=== PATIENT | female | born 1985 | race Caucasian/White ===

== ENCOUNTER → 2019-08-05 | Outpatient (CLI) | payer OTHER ==
--- NOTE | 2019-08-05 08:37 | WOMENS IMAGING REPORT ---
EXAM DESCRIPTION: U/S ABDOMEN LIMITED COMPLETED DATE/TIME: 08/05/2019 8:19 am REASON FOR STUDY: K42.9 UMBILICAL HERNIA WITHOUT OBSTRUCTION OR GANGRENE Z01.89 ENCOUNTER FOR OTHER SPECIFIED SPECIAL EXAMINATIONS COMPARISON: None. TECHNIQUE: Dynamic and static grayscale images acquired of the abdomen and the paraumbilical anterio r abdominal wall recorded on PACS. Additional selected color Doppler and spectral images recorded. LIMITATIONS: Midline bowel gas FINDINGS: PANCREAS: Midline pancreas appear LIVER: No masses. Echotexture normal. LIVER VASCULATURE: Normal directional flow of the main portal vein and hepatic veins. GALLBLADDER: Contracted, no gross gallstones or pericholecystic fluid ULTRASOUND-DETECTED MANZANO'S SIGN: Negative. INTRAHEPATIC DUCTS AND COMMON DUCT: CBD and intrahepatic ducts normal caliber. No filling defects. INFERIOR VENA CAVA: Normal flow. AORTA: No aneurysm. RIGHT KIDNEY: Normal size. Normal echogenicity. No solid or suspicious masses. No hydronephrosis. No calcifications. PERITONEAL AND RIGHT PLEURAL SPACE: No ascites or effusions. OTHER: Ultrasound of the umbilicus was performed including grayscale and cine images saved to pac's. No umbilical hernia is identified at ultrasound. IMPRESSION: Contracted gallbladder without stones No umbilical hernia is identified at ultrasound TECHNICAL DOCUMENTATION: JOB ID: [id number] [employer]- All Rights Reserved Reading location - IP/workstation name: [email or web address]
== END ==
LOC: WI 07:47
PROVIDERS: ATTEND Nurse Practitioner Family
DX: K42.9 Umbilical hernia without obstruction or gangrene (principal)
CPT/HCPCS: 76705